=== PATIENT | female | born 1970 | race Caucasian/White ===

== ENCOUNTER 2020-11-08 10:14 | Inpatient (IN) | payer OTHER, SELFPAY ==
[~2020-11-08] VITALS: Ht 160 cm; Wt 89.2 kg
[2020-11-08 10:31] VITALS: Ht 160 cm; Wt 89.2 kg
[2020-11-08 11:50] LABS: BASOPHIL % 0.7 % (0.2-1.3); RED CELL DISTRIBUTION WIDTH 13.5 % (12.3-17.7)
[2020-11-08 12:02] LABS: PLATELET COUNT 449 x10^3mcL (179-408)
[2020-11-08] MEDS ORDERED: XANAX0.5 MG PO (12:08)
[2020-11-08 13:55] LABS: CALCIUM 8.9 mg/dL (8.5-10.1); CARBON DIOXIDE 25.3 mmol/L (21-32); CHLORIDE SERUM 95 mmol/L (98-107); CREATININE SERUM 0.9 mg/dL (0.6-1.0); GFR1 > 60 mL/min; GLUCOSE SERUM 295 mg/dL (74-106); POTASSIUM SERUM 4.1 mmol/L (3.5-5.1); SODIUM SERUM 131 mmol/L (136-145)
[2020-11-08 13:59] LABS: ALKALINE PHOSPHATASE 95 U/L (46-116); ALT/SGPT 187 U/L (14-59); AST/SGOT 99 U/L (15-37); BILIRUBIN TOTAL 0.62 mg/dL (0.20-1.00); LACTIC DEHYDROGENASE (LDH) 422 U/L (100-190); TOTAL PROTEIN, SERUM 7.8 g/dL (6.4-8.2)
[2020-11-08 14:07] LABS: MAGNESIUM 2.1 mg/dL (1.8-2.4); PHOSPHOROUS 1.5 mg/dL (2.5-4.9)
[2020-11-08] MEDS ORDERED: DECADRON6 MG PO (14:20)
[2020-11-08] MEDS ORDERED: ATORVASTATIN CA40 M1 PO (14:20)
[2020-11-08] MEDS ORDERED: MOTRIN IB200 M1 PO (14:21)
[2020-11-08] MEDS ORDERED: PROAIR HFA8.5 GM INH (14:21)
[2020-11-08] MEDS ORDERED: AZITHROMYCIN250 M1 PO (14:23)
[2020-11-08] MEDS ORDERED: PHEL PO (14:24)
[2020-11-08] MEDS ORDERED: D3-50001 TAB PO (14:25)
[2020-11-08] MEDS ORDERED: BLACK ELDERBER1 EACH PO (14:26)
[2020-11-08 14:30] LABS: ALBUMIN 3.1 g/dL (3.4-5.0)
[2020-11-08 14:57] LABS: UA SPECIFIC GRAVITY >=1.030 (1.005-1.035); microscopic required? YES; urine erythrocyte NEGATIVE (NEGATIVE)
[2020-11-08 15:11] LABS: C REACTIVE PROTEIN 22.8 mg/dL (<=0.9)
[2020-11-08 15:34] LABS: AMPHETAMINE QUAL UR NONE DETECTED (See below)
[2020-11-08] MEDS ORDERED: ZESTRIL5 MG PO (16:35)
[2020-11-08 17:27] VITALS: BP 119/70
[2020-11-08 23:28] VITALS: BP 115/74
[2020-11-09 05:38] VITALS: BP 112/65
[2020-11-09 08:39] LABS: BASOPHIL % 0.1 % (0.2-1.3); RED CELL DISTRIBUTION WIDTH 13.2 % (12.3-17.7)
[2020-11-09 09:14] LABS: CALCIUM 8.6 mg/dL (8.5-10.1); CARBON DIOXIDE 25.3 mmol/L (21-32); CHLORIDE SERUM 97 mmol/L (98-107); CREATININE SERUM 0.7 mg/dL (0.6-1.0); GFR1 > 60 mL/min; GLUCOSE SERUM 208 mg/dL (74-106); MAGNESIUM 2.4 mg/dL (1.8-2.4); PHOSPHOROUS 3.3 mg/dL (2.5-4.9); POTASSIUM SERUM 3.6 mmol/L (3.5-5.1); SODIUM SERUM 133 mmol/L (136-145)
[2020-11-09 09:22] LABS: PLATELET COUNT 419 x10^3mcL (179-408)
[2020-11-09 09:50] VITALS: BP 127/74
[2020-11-09 15:00] VITALS: BP 104/51
[2020-11-09] MEDS ORDERED: DECADRON6 MG PO (17:07)
[2020-11-09] MEDS ORDERED: PROAIR HFA8.5 GM INH (17:08)
[2020-11-09] MEDS ORDERED: MUCINEX600 MG PO (17:09)
[2020-11-09] MEDS ORDERED: XARELTO10 M1 PO (17:10)
[2020-11-09] MEDS ORDERED: TESSALON PERLE100 MG PO (17:20)
[2020-11-09 18:30] VITALS: BP 114/66
[2020-11-09 21:53] VITALS: BP 93/67
[2020-11-10 06:45] VITALS: BP 90/55
[2020-11-10 08:09] LABS: BASOPHIL % 0.2 % (0.2-1.3); RED CELL DISTRIBUTION WIDTH 13.3 % (12.3-17.7)
[2020-11-10 08:39] LABS: CALCIUM 8.4 mg/dL (8.5-10.1); CARBON DIOXIDE 28.2 mmol/L (21-32); CHLORIDE SERUM 101 mmol/L (98-107); CREATININE SERUM 0.7 mg/dL (0.6-1.0); GFR1 > 60 mL/min; GLUCOSE SERUM 152 mg/dL (74-106); MAGNESIUM 2.4 mg/dL (1.8-2.4); POTASSIUM SERUM 3.9 mmol/L (3.5-5.1); SODIUM SERUM 139 mmol/L (136-145)
[2020-11-10 09:20] LABS: PLATELET COUNT 442 x10^3mcL (179-408)
[2020-11-10 09:30] VITALS: BP 130/81
[2020-11-10 12:30] VITALS: BP 103/51
[2020-11-10] MEDS ORDERED: DECADRON6 MG PO (12:46)
[2020-11-10] MEDS ORDERED: MISTASSIST KIT1 EACH MC (12:46)
[2020-11-10 14:55] VITALS: BP 103/51
[2020-11-10 17:01] VITALS: BP 131/71
[2020-11-10 21:25] VITALS: BP 133/68
[2020-11-11 05:55] VITALS: BP 133/80
[2020-11-11 09:10] VITALS: BP 120/66
[2020-11-11 12:33] VITALS: BP 121/74
== END 2020-11-11 16:16 | disposition home or self-care (01) | DRG 177 ==
LOC: ED 10:14 → DU 12:07
PROVIDERS: Emergency Medicine; ADMIT Internal Medicine; ATTEND Internal Medicine
PROC: XW13325 Transfusion of Convalescent Plasma (Nonautologous) into Peripheral Vein, Percutaneous Approach, New Technology Group 5 (ICD-10-PCS; principal; 2020-11-10)
DX: U07.1 COVID-19 (principal); J12.82 Pneumonia due to coronavirus disease 2019; J96.21 Acute and chronic respiratory failure with hypoxia; D68.9 Coagulation defect, unspecified; E44.1 Mild protein-calorie malnutrition; E87.1 Hypo-osmolality and hyponatremia; J45.901 Unspecified asthma with (acute) exacerbation; I10 Essential (primary) hypertension; R73.03 Prediabetes; F41.9 Anxiety disorder, unspecified; Z88.5 Allergy status to narcotic agent; Z88.8 Allergy status to other drugs, medicaments and biological substances; Z90.710 Acquired absence of both cervix and uterus; Z79.899 Other long term (current) drug therapy; Z79.891 Long term (current) use of opiate analgesic; Z79.01 Long term (current) use of anticoagulants; Z68.32 Body mass index [BMI] 32.0-32.9, adult
CPT/HCPCS: 36600; 82962; 83880; 85378; 87804; G0378; J1100; J1650; J2405; J3535; J7050; U0003